=== PATIENT | male | born 1955 | race Two or more races ===

== ENCOUNTER → 2020-03-23 | Outpatient (CLI) | payer OTHER ==
[~2020-03-23] MED LIST: GADOTERATE 7.5 MMOL/15ML VIAL. IVP ONE
--- NOTE | 2020-03-23 14:17 | RAD ---
MRI of the Brain without and with Contrast 03/23/2020 Clinical History: Right superior neck mass near occipital region. Technique: Unenhanced T1-weighted sagittal and axial and FLAIR, T2-weighted, gradient echo and diffusion-weighted axial images of the brain were obtained. After the intravenous administration of 15 cc of Clariscan, enhanced T1-weighted axial, sagittal and coronal images of the brain were obtained. Findings: No previous studies are available for comparison. There is generalized parenchymal atrophy. Patchy and several small focal areas of abnormally increased signal intensity are seen within the periventricular and subcortical white matter of both cerebral hemispheres on the FLAIR and T2-weighted images consistent with areas of mild small vessel ischemic disease. No acute parenchymal abnormality is seen. No abnormal area of parenchymal contrast enhancement is noted. No extra-axial fluid collection is seen. There is no MRI evidence of acute ischemia/infarction. Mild to moderate mucosal thickening is seen throughout the paranasal sinuses. Normal flow voids are seen within the major vascular structures surrounding the brain parenchyma. A somewhat oval-shaped heterogeneously enhancing mass is seen within the posterior superior neck immediately inferior to the right aspect of the occipital bone. This measures 8.3 x 6.6 x 6.1 cm in transverse, craniocaudal, and AP dimensions. This corresponds to the patient's palpable abnormality. Its MRI appearance is consistent with a neoplastic process such as a sarcoma. IMPRESSION: 1. 8.3 cm heterogeneously enhancing mass is seen within the right posterior superior neck immediately inferior to the right occipital bone. This is concerning for a neoplastic process. This would be amenable to ultrasound-guided biopsy if clinically warranted. 2. No acute parenchymal abnormality is seen. Electronically signed by: Anthony Ramires MD (03/23/2020 2:14 PM) [id number]
== END ==
LOC: MRI 14:45
PROVIDERS: ATTEND Nurse Practitioner Adult Health
DX: R22.1 Localized swelling, mass and lump, neck (principal)
CPT/HCPCS: 70553; A9575

== ENCOUNTER 2020-08-31 08:34 | Outpatient (CLI) | payer OTHER ==
[2020-08-31] VITALS (8 sets, daily range): BP systolic 110–127; BP diastolic 70–83
[2020-08-31] MEDS ORDERED: NYST100054 PO (09:13)
[2020-08-31] MEDS ORDERED: VITA400C37 PO (09:13)
[2020-08-31] MEDS ORDERED: VITA1TAB3 PO (09:13)
[2020-08-31] MEDS ORDERED: OMEG10005 PO (09:13)
[2020-08-31] MEDS ORDERED: ERGO500027 PO (09:13)
[2020-08-31] MEDS ORDERED: ASCO500C PO (09:13)
[2020-08-31] MEDS ORDERED: CALC1TAB PO (09:13)
[2020-08-31] MEDS ORDERED: glucosamine PO (09:13)
[2020-08-31] MEDS ORDERED: AMLO-186 PO (09:13)
[2020-08-31] MEDS ORDERED: fentaNYL PF VIAL 100 MCG/2 ML VIAL ONE (09:19)
[2020-08-31] MEDS ORDERED: MIDAZOLAM HCL/PF 2 MG/2 ML VIAL. ONE (09:19)
[2020-08-31] MEDS ORDERED: LIDOCAINE WITH 8.4% SOD BICARB 3 ML DISP.SYRIN. ONE (09:21)
[2020-08-31 09:24] LABS: BASO # 0.1 x10^3/uL (0.0-0.2); BASO % 1 % (0-3); EOS # 0.7 x10^3/uL (0.0-0.7); EOS % 10 % (0-3); HEMATOCRIT 44.3 % (39.0-53.0); HEMOGLOBIN 15.2 g/dL (13.0-17.5); LYMPH # 1.7 x10^3/uL (1.0-4.8); LYMPH % 26 % (24-48); MEAN CORPUSCULAR HEMOGLOBIN 32 pg (25-35); MEAN CORPUSCULAR HGB CONC 34 g/dL (31-37); MEAN CORPUSCULAR VOLUME 92 fL (79-100); MONO # 0.4 x10^3/uL (0.0-1.1); MONO % 7 % (0-9); NEUT # 3.6 x10^3/uL (1.8-7.7); NEUT % 56 % (31-73); PLATELET COUNT 275 x10^3/uL (140-400); RED BLOOD COUNT 4.82 x10^6/uL (4.30-5.70); RED CELL DISTRIBUTION WIDTH 13.1 % (11.5-14.5); WHITE BLOOD COUNT 6.5 x10^3/uL (4.0-11.0)
[2020-08-31 09:39] LABS: PROTHROMBIN TIME PATIENT 13.1 SEC (11.7-14.0)
[2020-08-31] MEDS ORDERED: LIDOCAINE WITH 8.4% SOD BICARB 3 ML DISP.SYRIN. IJ ONE (09:45)
[2020-08-31] MEDS ORDERED: fentaNYL PF VIAL 100 MCG/2 ML VIAL IV ONE (09:45)
[2020-08-31] MEDS ORDERED: MIDAZOLAM HCL/PF 2 MG/2 ML VIAL. IV ONE (09:45)
--- NOTE | 2020-08-31 11:24 | NUR ---
Discharge Note: CLAYTON STEPHENS Discharge instructions and discharge home medications reviewed with Patient and a copy given. All questions have been answered and understanding verbalized. The following instructions and handouts were given: Incision care Discontinued lines and drains: Left wrist IV dc'd and tip intact. Patient discharged to home with self via personal vehicle.
--- NOTE | 2020-08-31 15:08 | RAD ---
Procedure: Ultrasound-guided biopsy of a right posterior neck mass Clinical Indication: Adult male with right posterior neck mass Sedation: Local anesthesia only. Antibiotics: None Sterility: The procedure was performed in its entirety using appropriate elements of sterile techniqu e. Consent: The procedure was explained in its entirety to the patient or the patients designated repres entative by a member of the treatment team, including a discussion of the risks, benefits and commonl y accepted alternatives to the procedure, as well as the expected consequences of not performing the procedure. Discussion of the risks included, but was not limited to, those that are most frequent an d those that are rare but possibly severe or life-threatening, as well as the possibility of unforese en complications. Time Out: Immediately prior to initiation a procedural pause was conducted in the presence of the mem bers of the treatment team to verify correct patient identity, correct procedure, correct side if funmi licable, correct patient position, availability of specialized equipment, review of patients allergie s, and assessment of current level of consciousness and arousability. Technique and Findings: Following informed consent, the patient was prepped and draped in usual steri le fashion. Ultrasound interrogation of the area of interest revealed a large centrally necrotic mass . 1 percent lidocaine was used to achieve local anesthesia. A small dermatotomy was made. Under ultra sound guidance, a 17-gauge needle guide was advanced towards the target lesion and multiple 18-gauge core biopsy specimens of the peripheral portion of the abnormality were obtained and divided between formalin and RPMI. The needle guide was removed and hemostasis was achieved with manual compression. Complications: No immediate Impression: 1. Ultrasound-guided biopsy of a large posterior right neck mass as described. Electronically signed by: Mateus Tran MD (08/31/2020 3:05 PM) [id number]
--- NOTE | 2020-09-13 17:10 | PATHOLOGY ---
[facility] Accession Number: [id number] . 01 Material submitted: . neck - RIGHT POSTERIOR NECK MASS. Modifiers: right, posterior . 01 Clinical history: . 8 cm slow growing soft tissue mass of just below right occipital bone. No munira involvement. . 02 Diagnosis: PRELIMINARY DIAGNOSIS. Soft tissue "right posterior neck mass", preliminary diagnosis: - MYXOID NEOPLASM. (K:dominick; 09/13/2020) . The case is sent to the surgical pathology section at the [facility], for further refinement of the diagnosis. The results of the consultation and the final report will be the subjects of an addendum. [facility] 09/13/2020 1626 Local . 02 Electronically signed: . Gabriel Jones MD, Pathologist NPI- [id number] . 01 Gross description: . The specimen is received in formalin, labeled "Jas Cardoso, right posterior neck mass" received as multiple soft epstein tissue cores measuring up to 1.3 x less than 0.1cm entirely submitted in A1-A2.([facility]; 08/31/2020) GABRIELA/GABRIELA 08/31/2020 1701 Local . 02 Pathologist provided ICD-10: M79.89, R22.1 . 02 CPT . 583383 Specimen Comment: A courtesy copy of this report has been sent to [phone] Specimen Comment: Report sent to Performed at: 01 [facility] [address] [id number] MD Aneudy Rodriguez MD Phone: [phone] Performed at: 02 [facility] [id number] MD Demarco Magaña MD Phone: [phone]
== END 2020-08-31 11:37 | disposition home or self-care (01) ==
LOC: INTRAD 08:34
PROVIDERS: ATTEND Nurse Practitioner Adult Health
DX: R22.1 Localized swelling, mass and lump, neck (principal); M79.89 Other specified soft tissue disorders; I10 Essential (primary) hypertension; Z90.49 Acquired absence of other specified parts of digestive tract; Z98.890 Other specified postprocedural states; Z79.899 Other long term (current) drug therapy; Z87.891 Personal history of nicotine dependence; Z88.8 Allergy status to other drugs, medicaments and biological substances; Z20.822 Contact with and (suspected) exposure to COVID-19
CPT/HCPCS: 20206; 36415; 76942; 85025; 85610; 87426; 88184; 88185; J3490